=== PATIENT | female | born 1990 | race Caucasian/White ===

== ENCOUNTER → 2024-01-25 15:19 | Outpatient (REF) | payer BC, SELFPAY | LOC: PNTC 15:19 | PROVIDERS: ATTENDING PHYSICIAN Obstetrics & Gynecology | DX: Z36.0 Encounter for antenatal screening for chromosomal anomalies (principal); Z36.82 Encounter for antenatal screening for nuchal translucency | CPT/HCPCS: 76801; 76813 ==

== ENCOUNTER → 2024-03-20 16:09 | Outpatient (REF) | payer BC, SELFPAY | LOC: PNTC 16:09 | PROVIDERS: ATTENDING PHYSICIAN Obstetrics & Gynecology | DX: Z36.0 Encounter for antenatal screening for chromosomal anomalies (principal); Z36.82 Encounter for antenatal screening for nuchal translucency | CPT/HCPCS: 76811 ==

== ENCOUNTER → 2024-04-12 16:39 | Outpatient (REF) | payer BC, SELFPAY | LOC: PNTC 16:39 | PROVIDERS: ATTENDING PHYSICIAN Obstetrics & Gynecology | DX: O28.3 Abnormal ultrasonic finding on antenatal screening of mother (principal) | CPT/HCPCS: 76816 ==

== ENCOUNTER → 2024-06-14 07:40 | Outpatient (REF) | payer BC, SELFPAY | LOC: PNTC 07:40 | PROVIDERS: ATTENDING PHYSICIAN Obstetrics & Gynecology | DX: O99.280 Endocrine, nutritional and metabolic diseases complicating pregnancy, unspecified trimester (principal); Z36.0 Encounter for antenatal screening for chromosomal anomalies | CPT/HCPCS: 76816 ==

== ENCOUNTER 2024-07-28 15:24 | Inpatient (IN) | payer BC, SELFPAY ==
[2024-07-28 15:31] VITALS: BP 137/87
[2024-07-28] MEDS: LR 1000 IV (16:45)
[2024-07-28] MEDS: PITOCIN 30 UNITS/NSS 500 ML IV ×2 (16:46→19:20)
[2024-07-28 17:14] LABS: % Basophils 0.3 % (0-2); % Eosinophils 0.7 % (0-6); % Lymphocytes 20.7 % (20.5-51.1); % Monocytes 6.2 % (1.7-9.3); % Neutrophils 70.1 % (42.2-75.2); Absolute Eosinophils 0.1 10^3/uL (0-0.7); Absolute Immature Granulocytes 0.2 10^3/uL (0-0.05); Absolute Lymphocytes 2.5 10^3/uL (1.2-3.4); Absolute Monocytes 0.7 10^3/uL (0.1-0.6); Absolute Neutrophils 8.3 10^3/uL (1.4-6.5); Hematocrit 33.5 % (37.0-47.0); Hemoglobin 11.4 g/dL (12.0-16.0); Mean Corpuscular Hgb 30.3 pg (27.0-31.0); Mean Corpuscular Volume 89.1 fL (81.0-99.0); Mean Platelet Volume 10.6 fL (7.4-10.4); Nucleated Red Blood Cells % 0 %; Platelet Count 169 10^3/uL (130-400); Red Blood Cell Count 3.76 10^6/uL (4.20-5.40); Red Cell Dist. Width 14.2 % (11.5-14.5); White Blood Cell Count 11.9 10^3/uL (4.8-10.8)
[2024-07-28] MEDS: TYLENOL 650 MG PO (20:34)
[2024-07-28] MEDS: MOTRIN 600 MG PO (20:35)
[2024-07-28] MEDS: XYLOCAINE-MPF 1% VIAL 30 ML INFIL (20:41)
[2024-07-28] MEDS: METHERGINE INJECTION 0.2 MG IM (21:14)
[2024-07-29] MEDS: MOTRIN 600 MG PO ×3 (05:12→17:59)
[2024-07-29] MEDS: TYLENOL 650 MG PO ×4 (05:12→23:13)
[2024-07-29] MEDS: SYNTHROID 88 MCG PO (05:18)
[2024-07-29 05:23] LABS: Hematocrit 33.2 % (37.0-47.0); Hemoglobin 11.6 g/dL (12.0-16.0)
[2024-07-29] MEDS: SENOKOT-S 1 TABLET PO (23:15)
[2024-07-30] MEDS: SYNTHROID 88 MCG PO (06:01)
[2024-07-30] MEDS: MOTRIN 600 MG PO (07:24)
[2024-07-30] MEDS: TYLENOL 650 MG PO (07:28)
[2024-08-01 12:35] LABS: Syphilis/T. pallidum Ab Reflex Negative (Negative)
== END 2024-07-30 12:09 | disposition home or self-care (01) | DRG 807 ==
LOC: LDRP 15:24
PROVIDERS: ADMITTING PHYSICIAN Obstetrics & Gynecology
PROC: 10E0XZZ Delivery of Products of Conception, External Approach (ICD-10-PCS; 2024-07-28)
PROC: 10907ZC Drainage of Amniotic Fluid, Therapeutic from Products of Conception, Via Natural or Artificial Opening (ICD-10-PCS; 2024-07-28)
PROC: 0KQM0ZZ Repair Perineum Muscle, Open Approach (ICD-10-PCS; 2024-07-28)
DX: O99.284 Endocrine, nutritional and metabolic diseases complicating childbirth (principal); Z37.0 Single live birth; E03.9 Hypothyroidism, unspecified; E28.2 Polycystic ovarian syndrome; O70.1 Second degree perineal laceration during delivery; Z3A.39 39 weeks gestation of pregnancy
CPT/HCPCS: 36415; 85014; 85018; 85025; 86780; 86850; 86900; 86901

== ENCOUNTER → 2025-08-30 07:37 | Outpatient (REF) | payer OTHER, SELFPAY | LOC: HWRAD 07:37 | PROVIDERS: ATTENDING PHYSICIAN Obstetrics & Gynecology; FAMILY PHYSICIAN Nurse Practitioner Family | DX: N92.0 Excessive and frequent menstruation with regular cycle (principal) | CPT/HCPCS: 76830; 76856 ==

== ENCOUNTER 2025-09-17 09:36 | Day surgery (SDC) | payer OTHER, SELFPAY ==
[2025-09-14 07:36] LABS: Hematocrit 40.2 % (37.0-47.0); Hemoglobin 12.7 g/dL (12.0-16.0); Mean Corp Hgb Conc. 31.6 g/dL (33.0-37.0); Mean Corpuscular Volume 87.4 fL (81.0-99.0); Nucleated Red Blood Cells % 0 %; Platelet Count 261 10^3/uL (130-400); Red Cell Dist. Width 12.0 % (11.5-14.5)
[2025-09-14 07:44] LABS: INR 1.02; PT 13.7 Sec (11.4-14.6)
[2025-09-14 07:45] LABS: APTT 29.3 Sec (23.4-35.0)
[2025-09-17] VITALS (10 sets, daily range): BP systolic 105–142; BP diastolic 75–96; BMI 24.6
[2025-09-17] MEDS: TYLENOL 1000 MG PO (09:59)
[2025-09-17] MEDS: NORMOSOL-R/PLASMALYTE-A 1000 IV (10:00)
== END 2025-09-17 13:22 | disposition home or self-care (01) ==
LOC: SDS 09:36
PROVIDERS: ATTENDING PHYSICIAN Obstetrics & Gynecology; FAMILY PHYSICIAN Nurse Practitioner Family
DX: N92.0 Excessive and frequent menstruation with regular cycle (principal); N85.4 Malposition of uterus
CPT/HCPCS: 58563; 36415; 85025; 85610; 85730; 86850; 86900; 86901